=== PATIENT | female | born 1970 | race Caucasian/White ===

== ENCOUNTER 2023-01-13 12:10 | Outpatient (CLI) | payer OTHER | END 2023-01-13 13:42 | disposition home or self-care (01) | LOC: LAB 12:10 | PROVIDERS: ATTEND Internal Medicine Cardiovascular Disease | DX: E78.1 Pure hyperglyceridemia (principal); C25.4 Malignant neoplasm of endocrine pancreas; I10 Essential (primary) hypertension; C54.1 Malignant neoplasm of endometrium; Z80.0 Family history of malignant neoplasm of digestive organs; Z83.71 Family history of colonic polyps; E78.00 Pure hypercholesterolemia, unspecified ==

== ENCOUNTER 2023-01-13 14:22 | Outpatient (CLI) | payer OTHER | END 2023-01-13 15:00 | disposition home or self-care (01) | LOC: TOM 14:22 | PROVIDERS: ATTEND Internal Medicine Cardiovascular Disease | DX: C54.1 Malignant neoplasm of endometrium (principal); C25.4 Malignant neoplasm of endocrine pancreas; Z83.71 Family history of colonic polyps; Z80.0 Family history of malignant neoplasm of digestive organs ==